=== PATIENT | male | born 1970 | race Caucasian/White ===

== ENCOUNTER 2018-02-24 19:01 | Emergency (ER) | payer SELFPAY ==
[~2018-02-24] VITALS: Ht 167.6 cm; Wt 101.2 kg
--- NOTE | 2018-02-24 19:01 | NUR ---
BIB EMS. PLACED IN BED#4. C-COLLAR IN PLACE.
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
[2018-02-24 19:06] VITALS: BP 136/79
--- NOTE | 2018-02-24 19:20 | NUR ---
PT IS PLACED ON PRE-BOOK BY [facility] .
--- NOTE | 2018-02-24 19:25 | NUR ---
DR STEVENSON AT BEDSIDE EVALUATING PT.
[2018-02-24 19:57] LABS: ANION GAP 15.6 (8-16); CARBON DIOXIDE 23.8 mmol/L (21-32); CREATININE 0.9 mg/dL (0.7-1.3); POTASSIUM 3.4 mmol/L (3.5-5.1)
--- NOTE | 2018-02-24 20:00 | NUR ---
[place] [employer] RELEASED PT FROM PRE-BOOK STATUS. PT IS OK TO LEAVE WHEN DR STEVENSON CLEARS HIM MEDICALLY.
[2018-02-24 20:02] LABS: ALBUMIN 3.9 g/dL (3.4-5.0); TOTAL BILIRUBIN 0.3 mg/dL (0.0-1.0)
[2018-02-24 20:20] LABS: BASOPHILS # (AUTO) 0.1 K/uL (0.00-0.22); BASOPHILS % (AUTO) 0.7 % (0.0-2.0); EOSINOPHILS # (AUTO) 0.2 K/uL (0-0.4); HEMATOCRIT 41.7 % (36-52); HEMOGLOBIN 13.9 g/dL (12.0-18.0); LYMPHOCYTES # (AUTO) 2.4 K/uL (2.0-11.5); MEAN CORPUSCULAR HEMOGLOBIN 30 pg (27-31); MEAN CORPUSCULAR HGB CONC 33 g/dL (33-37); MEAN CORPUSCULAR VOLUME 88.5 fL (80-94); MONOCYTES # (AUTO) 0.4 K/uL (0.8-1.0); MONOCYTES % (AUTO) 4.5 % (1.7-9.3); NEUTROPHILS # (AUTO) 5.5 K/uL (1.8-7.7); NEUTROPHILS % (AUTO) 64.8 % (42.2-75.2); PLATELET COUNT (AUTO) 319 K/uL (140-450); RED BLOOD CELL COUNT(AUTO) 4.71 MIL/uL (4.20-6.10); RED CELL DISTRIBUTION WIDTH 13.8 % (11.6-13.7); WHITE BLOOD COUNT (AUTO) 8.4 K/uL (4.8-10.8)
--- NOTE | 2018-02-24 21:00 | NUR ---
DR. STEVENSON MEDICALLY CLEARED PT. FAMILY FROM EMERGENCY CONTACT CALLED. AWAITING PT MILLER DISTILLERY. PT IS ALLOWED TO LEAVE ONCE RIDE ARRIVES. VSS. CONTINUE TO MONITOR.
[2018-02-24 21:07] LABS: APPEARANCE,URINE CLEAR (CLEAR); BILIRUBIN,URINE NEGATIVE (NEGATIVE); BLOOD, URINE NEGATIVE (NEGATIVE); COLOR,URINE YELLOW (YELLOW); LEUKOCYTE ESTERASE ,URINE NEGATIVE (NEGATIVE); NITRITE, URINE NEGATIVE (NEGATIVE); UGLUCOSE NEGATIVE (NEGATIVE)
[2018-02-24 21:18] LABS: BARBITURATE, URINE NEG. ng/ml (NEG <=200); BENZODIAZEPINE, URINE NEG. ng/mL (NEG <=200); CANNABINOID, URINE NEG. ng/mL (NEG <=50); COCAINE, URINE NEG. ng/mL (NEG <=300); OPIATE, URINE NEG. ng/mL (NEG <=2000); PHENCYCLIDINE SCREEN,URINE NEG. ng/mL (NEG <=25)
[2018-02-24 23:37] VITALS: BP 136/79
--- NOTE | 2018-02-24 23:37 | NUR ---
Patient discharged with v/s stable. Written and verbal after care instructions given and explained. Patient verbalized understanding. Ambulatory with steady gait. All questions addressed prior to discharge. Advised to follow up with PMD.
== END 2018-02-24 23:37 | disposition home or self-care (01) ==
LOC: MED 19:01
DX: Z04.1 Encounter for examination and observation following transport accident (principal); F10.129 Alcohol abuse with intoxication, unspecified; V43.92XA Unspecified car occupant injured in collision with other type car in traffic accident, initial encounter; Y93.89 Activity, other specified; Y92.412 Parkway as the place of occurrence of the external cause; Y99.8 Other external cause status
CPT/HCPCS: 36415; 70450; 71045; 72125; 80053; 80305; 81003; 82948; 85025; 99285; G0482; Q0092

== ENCOUNTER 2022-11-26 22:03 | Emergency (ER) | payer MEDICAID ==
[~2022-11-26] VITALS: Ht 167.6 cm; Wt 90.7 kg
[2022-11-26 22:10] VITALS: BP 180/100
--- NOTE | 2022-11-26 22:13 | NUR ---
TO LOBBY A/W BED AMBULATORY
[2022-11-27] MEDS ORDERED: PSEU120T23 PO (02:20)
[2022-11-27] MEDS ORDERED: AZIT250T4 PO (02:20)
[2022-11-27] MEDS ORDERED: NAPR-54 PO (02:32)
[2022-11-27 02:46] VITALS: BP 164/74
--- NOTE | 2022-11-27 02:47 | NUR ---
Patient discharged with v/s stable. Written and verbal after care instructions given and explained. New rx for zithromax, and sudafed. Patient verbalized understanding. Ambulatory with steady gait. All questions addressed prior to discharge. Advised to follow up with PMD.
== END 2022-11-27 02:46 | disposition home or self-care (01) ==
LOC: MED 22:03
DX: J06.9 Acute upper respiratory infection, unspecified (principal); J32.9 Chronic sinusitis, unspecified; H61.23 Impacted cerumen, bilateral; Z20.822 Contact with and (suspected) exposure to COVID-19; Z79.1 Long term (current) use of non-steroidal anti-inflammatories (NSAID); Z79.2 Long term (current) use of antibiotics; Z79.899 Other long term (current) drug therapy
CPT/HCPCS: 99283

== ENCOUNTER 2024-02-27 00:05 | Emergency (ER) | payer OTHER ==
[~2024-02-27] VITALS: Ht 167.6 cm; Wt 94.8 kg
[~2024-02-27 00:05] MED LIST: AZIT250T4 PO; NAPR-337 PO; PSEU120T23 PO
[2024-02-27 00:22] VITALS: BP 164/99; PULSE 67; RESP 14; TEMP 97.3; O2SAT 100
[2024-02-27 00:26] VITALS: BP 164/99; PULSE 67; RESP 14; TEMP 97.3
[2024-02-27 00:43] VITALS: O2SAT 100
== END 2024-02-27 03:37 | disposition left against medical advice (07) ==
LOC: MED 00:05
DX: R10.2 Pelvic and perineal pain (principal); Z53.21 Procedure and treatment not carried out due to patient leaving prior to being seen by health care provider

== ENCOUNTER 2024-06-07 20:05 | Emergency (ER) | payer OTHER ==
[~2024-06-07] VITALS: Ht 167.6 cm; Wt 88.1 kg
[2024-06-07 20:46] VITALS: BP 151/103; PULSE 66; RESP 18; TEMP 98.9; O2SAT 98
[2024-06-07 21:03] VITALS: BP 151/103; PULSE 66; RESP 18; TEMP 98.9; O2SAT 98
[2024-06-07 21:52] LABS: FLU A ANTIGEN negative (NEGATIVE)
[2024-06-07 21:53] LABS: FLU B ANTIGEN NEGATIVE (NEGATIVE)
[2024-06-07] MEDS ORDERED: IBUP-2213 PO (21:57)
== END 2024-06-07 22:44 | disposition home or self-care (01) ==
LOC: MED 20:05
DX: J02.9 Acute pharyngitis, unspecified (principal); H61.23 Impacted cerumen, bilateral; Z20.822 Contact with and (suspected) exposure to COVID-19; F17.200 Nicotine dependence, unspecified, uncomplicated; Z79.899 Other long term (current) drug therapy
CPT/HCPCS: 99283